=== PATIENT | male | born 1975 | race African-American/Black ===

== ENCOUNTER 2024-08-30 02:23 | Emergency (ER) | payer SELFPAY ==
[~2024-08-30] VITALS: Ht 175.3 cm; Wt 114.0 kg
[2024-08-30 02:39] VITALS: O2SAT 100
[2024-08-30 03:11] LABS: DIFFERENTIAL COMMENT 0; HEMATOCRIT. 42.2 % (42.0-52.0); HEMOGLOBIN. 13.1 g/dL (14.0-18.0); LYMPHOCYTES % 41.5 % (20.0-50.0); MEAN CORPUSCULAR HEMOGLOBIN 24.7 pg (28.0-32.0); MEAN CORPUSCULAR HGB CONC 30.9 g/dL (31.0-37.0); MEAN CORPUSCULAR VOLUME 79.8 fL (80.0-94.0); MEAN PLATELET VOLUME 8.5 fl (7.4-10.4); MONOCYTES % 7.9 % (2.0-8.0); NEUTROPHILS % 48.6 % (40.0-76.0); PLATELET 342 x1000/uL (130-400); RED BLOOD CELL COUNT 5.29 mill/uL (4.7-6.1); RED CELL DISTRIBUTION WIDTH 14.5 % (11.6-14.6); WHITE BLOOD COUNT 7.3 x1000/uL (4.5-11.0)
[2024-08-30 03:16] LABS: CHLORIDE 107 mEq/L (98-107); POTASSIUM 3.6 mEq/L (3.5-5.1); SODIUM 139 mEq/L (136-145)
[2024-08-30 03:17] LABS: CARBON DIOXIDE 25 mEq/L (21-32)
[2024-08-30 03:18] LABS: CALCIUM 9.5 mg/dL (8.7-10.4)
[2024-08-30 03:22] LABS: CREATININE 1.1 mg/dL (0.6-1.3); GLUCOSE 99 mg/dL (70-105); UREA NITROGEN BLOOD 13 mg/dL (9-23)
[2024-08-30 03:32] LABS: TROPONIN I HIGH SENSITIVITY < 4 ng/L (3.0-53)
[2024-08-30 05:16] VITALS: BP 160/92; PULSE 82; RESP 18; TEMP 36.72516; O2SAT 99
== END 2024-08-30 05:17 | disposition home or self-care (01) ==
LOC: ER 02:23
DX: R00.2 Palpitations (principal); F41.9 Anxiety disorder, unspecified; Z88.6 Allergy status to analgesic agent
CPT/HCPCS: 36415; 71045; 80048; 84484; 85025; 93005; 99285

== ENCOUNTER 2025-04-15 21:29 | Emergency (ER) | payer SELFPAY ==
[~2025-04-15] VITALS: Ht 175.3 cm; Wt 91.0 kg
[2025-04-15 21:33] VITALS: O2SAT 100
[2025-04-15 22:15] VITALS: BP 178/115; PULSE 90; RESP 18; TEMP 36.4; O2SAT 98
== END 2025-04-15 22:58 | disposition home or self-care (01) ==
LOC: ER 21:29
DX: R04.0 Epistaxis (principal); I10 Essential (primary) hypertension; Z88.6 Allergy status to analgesic agent
CPT/HCPCS: 99281